=== PATIENT | female | born 1995 | race Caucasian/White ===

== ENCOUNTER 2018-05-17 05:22 | Emergency (ER) | payer OTHER ==
--- NOTE | 2018-05-17 06:12 | ED Physician Chart ---
ED Chief Complaint/HPI - Patient Information Allergies:: Allergies Allergy/AdvReac Type Severity Reaction Status Date / Time morphine Allergy Verified 05/17/18 05:37 vancomycin Allergy Verified 05/17/18 05:37 Vitals:: Vital Signs - 8 hr 05/17/18 05:37 Temp 97.8 F HR 71 RR 18 BP 107/69 O2 Sat % 99 Family Medical History - Family Member Mother History Unknown: Yes ED Septic Shock - . Is Septic Shock (SBP<90, OR Lactate>4 mmol\L) present?: No - <6hrs of presentation: Vital Signs: Vital Signs - 8 hr 05/17/18 05:37 Temp 97.8 F HR 71 RR 18 BP 107/69 O2 Sat % 99 ED Reassessment (Disposition) - Reassessment Reassessment Condition:: Unchanged - Diagnosis Diagnosis:: Left TMJ syndrome - Aftercare/Follow up Instructions Aftercare/Follow-Up Instructions:: Refer to Discharge Instructions Notes:: stop antibiotics. get a mouthguard. follow an edentulous diet. Medication Prescribed:: none. patient refuses. - Patient Disposition Discharge/Transfer:: Home Condition at Disposition:: Stable, Unchanged
== END 2018-05-17 06:20 | disposition home or self-care (01) ==
LOC: ER 05:22
DX: M26.622 Arthralgia of left temporomandibular joint (principal); R22.0 Localized swelling, mass and lump, head; Z88.1 Allergy status to other antibiotic agents; Z88.5 Allergy status to narcotic agent
CPT/HCPCS: Z7502